=== PATIENT | male | born 1960 | race Caucasian/White ===

== ENCOUNTER 2020-07-23 12:34 | Inpatient (IN) | payer MEDICARE, OTHER ==
[~2020-07-23] VITALS: Ht 182.9 cm; Wt 163.3 kg
[2020-07-23 16:38] LABS: HEMOGLOBIN 12.3 gm/dl (14.0-17.5); RED BLOOD COUNT 4.15 M/UL (4.20-5.50); WHITE BLOOD COUNT 9.3 K/UL (4.5-11.0)
[2020-07-23] MEDS ORDERED: HYDROCODON-ACE1 EAC4 PO (16:56)
[2020-07-23] MEDS ORDERED: CATAPRES 0.1MG0.1 MG PO ×2 (16:57→16:58)
[2020-07-23] MEDS ORDERED: GABAPENTIN300 MG PO (17:00)
[2020-07-23] MEDS ORDERED: ELIQUIS5 MG PO (17:00)
[2020-07-23] MEDS ORDERED: JANUVIA 50 MG T50 MG PO (17:01)
[2020-07-23] MEDS ORDERED: METOPROLOL SUCC50 MG PO (17:02)
[2020-07-23] MEDS ORDERED: SENOKOT-S TABL1 EACH PO (17:02)
[2020-07-23] MEDS ORDERED: AMLODIPINE BESYL5 MG PO (17:03)
[2020-07-23] MEDS ORDERED: ISOSORBIDE MONO60 MG PO (17:03)
[2020-07-23] MEDS ORDERED: LEVOTHYROXINE50 MCG PO (17:04)
[2020-07-23] MEDS ORDERED: CLONAZEPAM2 MG PO (17:04)
[2020-07-23] MEDS ORDERED: ATORVASTATIN CA20 MG PO (17:06)
[2020-07-23] MEDS ORDERED: HYDRALAZINE HCL10 MG PO ×2 (17:06→17:07)
[2020-07-23] MEDS ORDERED: ASPIRIN81 MG PO (17:08)
[2020-07-23] MEDS ORDERED: ALLERGY RELIEF10 M1 PO (17:08)
[2020-07-23] MEDS ORDERED: HUMULIN 70100 UNIT/2 SQ (17:12)
[2020-07-23] MEDS ORDERED: LEVEMIR100 UNIT/1 SQ (17:15)
[2020-07-23] MEDS ORDERED: ZYLOPRIM 300 M300 MG PO (17:17)
[2020-07-23] MEDS ORDERED: BUMETANIDE2 MG PO (17:22)
[2020-07-23] MEDS ORDERED: CALCITRIOL0.5 MCG PO (17:24)
[2020-07-23] MEDS ORDERED: ALBUTEROL2.5 MG/3 M INH (17:25)
[2020-07-23] MEDS ORDERED: EMGALITY120 MG/1 M SQ (17:26)
[2020-07-23] MEDS ORDERED: TIZANIDINE HCL2 MG PO (17:29)
[2020-07-23] MEDS ORDERED: NITROGLYCERIN0.4 MG SL (17:30)
[2020-07-24 05:50] LABS: HEMOGLOBIN 11.5 gm/dl (14.0-17.5); RED BLOOD COUNT 3.84 M/UL (4.20-5.50); WHITE BLOOD COUNT 11.1 K/UL (4.5-11.0)
--- NOTE | 2020-07-24 17:12 | NUR ---
07/24/20 1800 PATIENT REFUSED 70/30 INSULINS AT LUNCH AND DINNER STATED "IM AFRAID IT WILL DROP TO LOW". PT REASSURED
[2020-07-25 12:14] LABS: ANTISTREPTOLYSIN O AB 368.1 IU/mL (0.0-200.0); COMPLEMENT C3, SERUM 154 mg/dL (82-167); COMPLEMENT C4, SERUM 39 mg/dL (12-38)
[2020-07-25 13:14] LABS: ANTI-DSDNA ANTIBODIES 3 IU/mL (0-9)
[2020-07-25 16:11] LABS: ATYPICAL PANCA <1:20 titer (Neg:<1:20); CYTOPLASMIC (C-ANCA) <1:20 titer (Neg:<1:20); PERINUCLEAR (P-ANCA) <1:20 titer (Neg:<1:20)
[2020-07-25 17:11] LABS: A/G RATIO 0.9 (0.7-1.7); ALBUMIN 2.9 g/dL (2.9-4.4); ALPHA-1-GLOBULIN 0.3 g/dL (0.0-0.4); BETA GLOBULIN 1.1 g/dL (0.7-1.3); GAMMA GLOBULIN 1.2 g/dL (0.4-1.8); GLOBULIN, TOTAL 3.6 g/dL (2.2-3.9); IMMUNOGLOBULIN A, QN, SERUM 396 mg/dL (90-386); IMMUNOGLOBULIN G, QN, SERUM 1201 mg/dL (603-1613); IMMUNOGLOBULIN M, QN, SERUM 90 mg/dL (20-172); M-SPIKE Not Observed g/dL (Not Observed); PROTEIN, TOTAL, SERUM 6.5 g/dL (6.0-8.5)
[2020-07-27 13:49] LABS: HEMOGLOBIN 13.3 gm/dl (14.0-17.5); RED BLOOD COUNT 4.46 M/UL (4.20-5.50); WHITE BLOOD COUNT 9.2 K/UL (4.5-11.0)
[2020-07-29 06:10] LABS: HBSAG SCREEN Negative (Negative); HEP A AB, IGM Negative (Negative); HEP B CORE AB, IGM Negative (Negative); HEP C VIRUS AB <0.1 (0.0-0.9)
== END 2020-07-27 15:36 | disposition home or self-care (01) | DRG 683 ==
LOC: MED SURG 4 14:20
PROVIDERS: Internal Medicine Nephrology; ADMIT Internal Medicine
DX: N17.9 Acute kidney failure, unspecified (principal); I50.22 Chronic systolic (congestive) heart failure; I48.20 Chronic atrial fibrillation, unspecified; I13.0 Hypertensive heart and chronic kidney disease with heart failure and stage 1 through stage 4 chronic kidney disease, or unspecified chronic kidney disease; N18.4 Chronic kidney disease, stage 4 (severe); E11.22 Type 2 diabetes mellitus with diabetic chronic kidney disease; E21.0 Primary hyperparathyroidism; I25.10 Atherosclerotic heart disease of native coronary artery without angina pectoris; D64.9 Anemia, unspecified; M10.9 Gout, unspecified; I89.0 Lymphedema, not elsewhere classified; R80.9 Proteinuria, unspecified; I25.2 Old myocardial infarction; Z88.8 Allergy status to other drugs, medicaments and biological substances; Z82.3 Family history of stroke; Z83.3 Family history of diabetes mellitus; Z82.49 Family history of ischemic heart disease and other diseases of the circulatory system; Z79.01 Long term (current) use of anticoagulants; Z79.899 Other long term (current) drug therapy; Z79.4 Long term (current) use of insulin; Z79.82 Long term (current) use of aspirin
CPT/HCPCS: 36415; 71045; 80048; 80053; 80074; 81001; 82570; 82784; 82962; 83036; 83520; 83735; 83883; 84155; 84156; 84165; 85025; 85610; 85730; 86038; 86060; 86160; 86162; 86225; 86256; 86334; 86704; 86706; 86708; 86803; 87340; 89050; 94640; 94664; 94760; G0379; J7030; U0002

== ENCOUNTER → 2020-07-29 | Outpatient (CLI) | payer MEDICARE, OTHER ==
[~2020-07-29] MED LIST: ALBUTEROL2.5 MG/3 M INH; ALLERGY RELIEF10 M1 PO; AMLODIPINE BESYL5 MG PO; ASPIRIN81 MG PO; ATORVASTATIN CA20 MG PO; BUMETANIDE2 MG PO; CALCITRIOL0.5 MCG PO; CATAPRES 0.1MG0.1 MG PO; CLONAZEPAM2 MG PO; ELIQUIS5 MG PO; EMGALITY120 MG/1 M SQ; GABAPENTIN300 MG PO; HUMULIN 70100 UNIT/2 SQ; HYDRALAZINE HCL10 MG PO; HYDROCODON-ACE1 EAC4 PO; ISOSORBIDE MONO60 MG PO; JANUVIA 50 MG T50 MG PO; LEVEMIR100 UNIT/1 SQ; LEVOTHYROXINE50 MCG PO; METOPROLOL SUCC50 MG PO; NITROGLYCERIN0.4 MG SL; SENOKOT-S TABL1 EACH PO; TIZANIDINE HCL2 MG PO; ZYLOPRIM 300 M300 MG PO
== END | disposition home or self-care (01) ==
LOC: CT 06:44
DX: I12.9 Hypertensive chronic kidney disease with stage 1 through stage 4 chronic kidney disease, or unspecified chronic kidney disease (principal); E11.22 Type 2 diabetes mellitus with diabetic chronic kidney disease; N17.9 Acute kidney failure, unspecified; N18.4 Chronic kidney disease, stage 4 (severe); N28.1 Cyst of kidney, acquired; Z79.01 Long term (current) use of anticoagulants; Z79.82 Long term (current) use of aspirin; Z79.4 Long term (current) use of insulin; Z79.899 Other long term (current) drug therapy
CPT/HCPCS: 77012; 82962; 88305; 88313; 88346; 88348

== ENCOUNTER → 2021-07-20 | Outpatient (CLI) | payer MEDICARE, OTHER | LOC: LAB 16:07 | DX: E11.69 Type 2 diabetes mellitus with other specified complication (principal); S91.301A Unspecified open wound, right foot, initial encounter; X58.XXXA Exposure to other specified factors, initial encounter | CPT/HCPCS: 87070; 87205 ==